=== PATIENT | female | born 2000 | race Two or more races ===

== ENCOUNTER 2021-11-30 11:19 | Outpatient (CLI) | payer OTHER | END 2021-11-30 12:16 | disposition home or self-care (01) | LOC: PRENATAL 11:19 | PROVIDERS: ATTEND Obstetrics & Gynecology Maternal & Fetal Medicine | DX: O35.0XX0 Maternal care for (suspected) central nervous system malformation in fetus, not applicable or unspecified (principal); O35.3XX0 Maternal care for (suspected) damage to fetus from viral disease in mother, not applicable or unspecified; Z3A.22 22 weeks gestation of pregnancy ==

== ENCOUNTER 2021-12-31 11:24 | Outpatient (CLI) | payer OTHER | END 2021-12-31 12:03 | disposition home or self-care (01) | LOC: PRENATAL 11:24 | PROVIDERS: ATTEND Obstetrics & Gynecology Maternal & Fetal Medicine | DX: O35.0XX0 Maternal care for (suspected) central nervous system malformation in fetus, not applicable or unspecified (principal); O35.3XX0 Maternal care for (suspected) damage to fetus from viral disease in mother, not applicable or unspecified; Z3A.23 23 weeks gestation of pregnancy ==

== ENCOUNTER 2022-04-11 14:56 | Inpatient (IN) | payer OTHER ==
[~2022-04-11] VITALS: Ht 152.4 cm; Wt 59.9 kg
[2022-04-29] MEDS ORDERED: PRENATAL + DHA1 EAC1 (07:51)
[2022-04-29] MEDS ORDERED: IRON236 MG (07:51)
== END 2022-04-30 12:04 | disposition home or self-care (01) | DRG 807 ==
LOC: OB/GYN 04-26 15:00 → LDR 04-28 12:16 → OB/GYN 04-28 12:16
PROVIDERS: ADMIT Obstetrics & Gynecology; ATTEND Obstetrics & Gynecology
PROC: 10E0XZZ Delivery of Products of Conception, External Approach (ICD-10-PCS; principal; 2022-04-28)
PROC: 0KQM0ZZ Repair Perineum Muscle, Open Approach (ICD-10-PCS; 2022-04-28)
PROC: 0W8NXZZ Division of Female Perineum, External Approach (ICD-10-PCS; 2022-04-28)
PROC: 4A1HXCZ Monitoring of Products of Conception, Cardiac Rate, External Approach (ICD-10-PCS; 2022-04-28)
DX: O70.1 Second degree perineal laceration during delivery (principal); Z37.0 Single live birth; Z3A.40 40 weeks gestation of pregnancy; Z20.822 Contact with and (suspected) exposure to COVID-19